=== PATIENT | female | born 1955 | race Caucasian/White ===

== ENCOUNTER 2020-03-11 14:05 | Emergency (ER) | payer OTHER ==
--- OUTSIDE RECORDS SUMMARY | 2020-03-11 14:07 | XMS REPORT | Continuity of Care Document ---
:1955 Author Organization [facility] t Address [address] [place] [address] Dr. Gaspar [address] [place] [id number] Care Team Providers Name Role Phone Ivory Attending Clinician Unavailable Problems This patient has no known problems. Allergies, Adverse Reactions, Alerts This patient has no known allergies or adverse reactions. Medications This patient has no known medications. Procedures This patient has no known procedures. Results Test Description Test Time Test Comments Results Result [facility] e Comments PAP TEST - THIN 2016-10-12 PREP SCREEN 10:03:00 -------- [place] [address] Laboratory Printed: 10/12/[address] [place] [address] DAEMPathology Page: 1 Patient: HENRY KING Birthdate: 1955 Age/Sex: 61/F Spec#: [id number]: Shantell Dodson DO Specimen Date: 10/07/16 Received Date: 10/08/16 Specimen: PAP - THIN PREP SCREEN GYNECOLOGIC CYTOLOGY DIAGNOSIS NEGATIVE FOR INTRAEPITHELIAL LESION OR MALIGNANCY Atrophic changes present Satisfactory for evaluation, Endocervical component present NOTE: The Pap test is a screening test with an inherent, but low probability of error.Your patient should be reminded to consult you immediately if she experiences any suspicioussigns or symptoms, regardless of her Pap test result.SCREENED BY: OSIEL LEY(ASCP) PERFORMING SITE: [facility], [place], [place] CAP# [id number] History:PAP Source: CERVIX/ENDOCERVIX LMP: NOS History of Hysterectomy?: NOrder HPV Test IF: ABNORMAL PROCEDURES: PAP SCREEN-THIN Signed (Electronicall y Signed) Delia Whitlock Cytot 10/12/16 -------- Patient: HENRY KING Re10/07/16Loc: [facility] MR#: [id number] END OF REPORT Dis: Sta: REG REF
[2020-03-11] MEDS ORDERED: MORPHINE 4 MG/ML SYR ONE (15:41)
[2020-03-11] MEDS ORDERED: ONDANSETRON 4 MG/2 ML VIAL ONE (15:41)
[2020-03-11] MEDS ORDERED: CLINDAMYCIN 600MG/D5W 600 MG/50 ML BAG IV ONE (15:42)
[2020-03-11 16:10] LABS: Absolute Lymphocytes (CBC) 1.8 K/uL (0.7-4.9); Basophils % 1.3 % (0-1.3); Hematocrit 37.4 % (36.0-45.0); Lymphocytes % 24.1 % (15.3-44.8); RBC Red Blood Cell Count 3.99 M/uL (3.86-4.86)
--- NOTE | 2020-03-11 16:19 | RAD REPORT ---
EXAM DESCRIPTION: [facility] CLINICAL HISTORY: dental pain;Facial pain Facial pain and swelling. COMPARISON: No comparisons TECHNIQUE: Axial 2 mm thick images of the face were obtained with sagittal and coronal reconstructio n images. All CT scans are performed using dose optimization technique as appropriate and may include automated exposure control or mA/KV adjustment according to patient size. FINDINGS: Small 2-3 mm periapical abscess is noted involving the right lateral incisor and first pre molar. The soft tissues is adjacent to the right maxilla are thickened. No discrete subperiosteal abs cess seen.General poor dentition is noted.The mandible is intact. Several mildly prominent lymph nodes are seen in both submandibular regions, likely reactive. The globes and orbital contents are grossly unremarkable.The paranasal sinuses and mastoids are clear . IMPRESSION: Small right maxillary periapical abscesses are present.No subperiosteal abscess. Several mildly prominent submandibular lymph nodes are present, slightly greater on the right, likely reactive in etiology.
[2020-03-11 16:20] LABS: Protime INR 0.94
[2020-03-11 16:49] LABS: Potassium 3.6 mmol/L (3.5-5.1)
--- NOTE | 2020-03-11 16:54 | ER ---
Nurse's Notes [facility] Name: Bharati Rodriguez Age: 64 yrs Sex: Female : 1955 Arrival Date: 03/11/2020 Time: 14:12 Bed 15 Private MD: Diagnosis: Periapical abscess without sinus Presentation: 03/11 14:17 Chief complaint: Patient states: Abscess on R upper tooth since the weekend. Tried to ca1 pull it out by twisting and pulling. Bruise and swelling on R eye, swelling on R face and a headache since Tuesday. Coronavirus screen: Client denies travel out of the [place] in the last 14 days. headache, Client presents with at least one sign or symptom that may indicate coronavirus-19. Standard/surgical mask placed on the client. Provider contacted for isolation considerations. The client denies any previous COVID testing. Ebola Screen: Patient negative for fever greater than or equal to 101.5 degrees Fahrenheit, and additional compatible Ebola Virus Disease symptoms Patient denies exposure to infectious person. Patient denies travel to an Ebola-affected area in the 21 days before illness onset. No symptoms or risks identified at this time. Initial Sepsis Screen: Does the patient meet any 2 criteria? No. Patient's initial sepsis screen is negative. Does the patient have a suspected source of infection? No. Patient's initial sepsis screen is negative. Risk Assessment: Do you want to hurt yourself or someone else? Patient reports no desire to harm self or others. Onset of symptoms was March 11, 2020. 14:17 Method Of Arrival: Ambulatory ca1 14:17 Acuity: HOLLY 4 ca1 Historical: - Allergies: 14:26 PENICILLINS; ca1 - Home Meds: 14:26 Advil 200 mg Oral tab 1 tab every 4 hours [Active]; prazosin 2 mg Oral cap 1 cap daily ca1 [Active]; propranolol 10 mg Oral tab 1 tab twice a day [Active]; quetiapine 100 mg oral tab 1 tab daily [Active]; levothyroxine 100 mcg tab 1 tab once daily [Active]; indomethacin 50 mg Oral cap [Active]; clonidine HCl 0.2 mg Oral tab 1 tab once daily [Active]; colchicine 0.6 mg Oral tab 2 tabs [Active]; buspirone 15 mg Oral tab 2 tabs 2 times per day [Active]; allopurinol 100 mg Oral tab 1 tab once daily [Active]; fluoxetine 20 mg Oral cap 2 caps once daily [Active]; cyclobenzaprine 5 mg Oral tab 1 tab twice a day [Active]; amlodipine 10 mg tab 1 tab once daily [Active]; - PMHx: 14:26 Gout; Hypertension; PTSD; ca1 - PSHx: 14:26 Back surgery; Appendectomy; Neck surgery; ca1 - Immunization history:: Adult Immunizations up to date, Flu vaccine is not up to date. It has been more than one year since last vaccine. - Social history:: Smoking status: Patient reports the use of cigarette tobacco products, smokes one pack cigarettes per day. Screenin:47 Abuse screen: Denies threats or abuse. Nutritional screening: No deficits noted. tw2 Tuberculosis screening: No symptoms or risk factors identified. Fall Risk None identified. Assessment: 14:26 General: Appears in no apparent distress. uncomfortable, obese, well groomed, Behavior tw2 is calm, cooperative, appropriate for age. Pain: Complains of pain in right cheek and right jaw. Neuro: Level of Consciousness is awake, alert, obeys commands, Oriented to person, place, time, situation. Cardiovascular: Patient's skin is warm and dry. Respiratory: Airway is patent Respiratory effort is even, unlabored, Respiratory pattern is regular, symmetrical. GI: No signs and/or symptoms were reported involving the gastrointestinal system. : No signs and/or symptoms were reported regarding the genitourinary system. EENT: bruising and swelling noted to Right eye and cheek area. Derm: No signs and/or symptoms reported regarding the dermatologic system. Musculoskeletal: Range of motion: intact in all extremities. 15:11 Reassessment: provider at bedside at this time. tw2 16:30 Reassessment: Patient appears in no apparent distress at this time. Patient and/or bp family updated on plan of care and expected duration. Pain level reassessed. Patient is alert, oriented x 3, equal unlabored respirations, skin warm/dry/pink. CT RESULTS PENDING. Vital Signs: 14:17 BP 158 / 80; Pulse 62; Resp 19 S; Temp 97.6(TE); Pulse Ox 99% on R/A; Weight 81.19 kg ca1 (R); Height 5 ft. 3 in. (160.02 cm) (R); Pain 5/10; 15:13 BP 154 / 83; Pulse 52; Resp 17; Pulse Ox 100% on R/A; tw2 16:42 BP 156 / 72; Pulse 53; Resp 16; Pulse Ox 97% ; bp 14:17 Body Mass Index 31.71 (81.19 kg, 160.02 cm) ca1 ED Course: 14:12 Patient arrived in ED. ds1 14:19 Triage completed. ca1 14:26 Arm band placed on right wrist. ca1 14:26 Bed in low position. Call light in reach. Pulse ox on. NIBP on. tw2 14:27 Jorge Moncada, RN is Primary Nurse. bp 14:57 Akash Gutierrez NP is PHCP. pm1 14:57 Juan Antonio Martinez MD is Attending Physician. pm1 15:31 Inserted saline lock: 20 gauge in right antecubital area, using aseptic technique. dh4 16:07 CT Facial Bones W/ Con \T\ Mpr In Process Unspecified. EDMS 17:16 No provider procedures requiring assistance completed. IV discontinued, intact, iw bleeding controlled, No redness/swelling at site. Pressure dressing applied. Administered Medications: 15:30 Drug: Clindamycin 600 mg Route: IVPB; Infused Over: 30 mins; Site: right forearm; bp 17:17 Follow up: IV Status: Completed infusion iw 15:30 Drug: morphine 4 mg Route: IVP; Site: right forearm; bp 15:43 Follow up: Response: No adverse reaction bp 15:33 Drug: Zofran (Ondansetron) 4 mg Route: IVP; Site: right forearm; bp 15:43 Follow up: Response: No adverse reaction bp Outcome: 16:53 Discharge ordered by MD. pm1 17:16 Discharged to home ambulatory, with family. iw 17:16 Condition: good 17:16 Discharge instructions given to patient, Instructed on discharge instructions, follow up and referral plans. medication usage, Demonstrated understanding of instructions, follow-up care, medications, Prescriptions given X 2. 17:18 Patient left the ED. iw Signatures: Dispatcher [employer] EDIL Luann Grace ds1 Ana Luisa Weber RN RN iw Akash Gutierrez, ENEDINA PRIEST pm1 Coretta Torres RN RN tw2 Jorge Moncada RN RN bp Acob, Domi, RN RN ca1 Huhn, Ellis dh4
--- NOTE | 2020-03-11 16:54 | EDPHYS ---
Physician Documentation [facility] Name: Bharati Rodriguez Age: 64 yrs Sex: Female : 1955 Arrival Date: 03/11/2020 Time: 14:12 Bed 15 Private MD: ED Physician Juan Antonio Martinez HPI: 03/11 15:19 This 64 yrs old Female presents to ER via Ambulatory with complaints of pm1 Facial Swelling, Abscess - Dental. 15:19 Onset: The symptoms/episode began/occurred today. pm1 15:19 The patient presents with Dental pain, swelling to right cheek. The problem is located pm1 in the upper right lateral incisor. Modifying factors: the symptoms are aggravated by attempting to extract tooth by herself at home. Associated signs and symptoms: Pertinent negatives: dysphagia, fever, inability to eat, nausea, vomiting. Severity of symptoms: in the emergency department the symptoms are actually worse. Patient with dental pain that started this weekend. Last night she attempted to extract the tooth by herself by twisting and pulling on the tooth. She woke up this AM with swelling and bruising to right cheek area and bruising. Historical: - Allergies: 14:26 PENICILLINS; ca1 - Home Meds: 14:26 Advil 200 mg Oral tab 1 tab every 4 hours [Active]; prazosin 2 mg Oral cap 1 cap daily ca1 [Active]; propranolol 10 mg Oral tab 1 tab twice a day [Active]; quetiapine 100 mg oral tab 1 tab daily [Active]; levothyroxine 100 mcg tab 1 tab once daily [Active]; indomethacin 50 mg Oral cap [Active]; clonidine HCl 0.2 mg Oral tab 1 tab once daily [Active]; colchicine 0.6 mg Oral tab 2 tabs [Active]; buspirone 15 mg Oral tab 2 tabs 2 times per day [Active]; allopurinol 100 mg Oral tab 1 tab once daily [Active]; fluoxetine 20 mg Oral cap 2 caps once daily [Active]; cyclobenzaprine 5 mg Oral tab 1 tab twice a day [Active]; amlodipine 10 mg tab 1 tab once daily [Active]; - PMHx: 14:26 Gout; Hypertension; PTSD; ca1 - PSHx: 14:26 Back surgery; Appendectomy; Neck surgery; ca1 - Immunization history:: Adult Immunizations up to date, Flu vaccine is not up to date. It has been more than one year since last vaccine. - Social history:: Smoking status: Patient reports the use of cigarette tobacco products, smokes one pack cigarettes per day. ROS: 15:19 Constitutional: Negative for fever, chills, and weight loss. pm1 15:19 Neck: Negative for injury, pain, and swelling, Cardiovascular: Negative for chest pain, palpitations, and edema, Respiratory: Negative for shortness of breath, cough, wheezing, and pleuritic chest pain, Abdomen/GI: Negative for abdominal pain, nausea, vomiting, diarrhea, and constipation, Back: Negative for injury and pain. 15:19 Neuro: Negative for headache, weakness, numbness, tingling, and seizure. 15:19 Eyes: Negative for pain, swelling. 15:19 ENT: Positive for dental pain, Negative for ear pain, sore throat. 15:19 Skin: Positive for swelling, bruising to right cheek area. Exam: 15:19 Constitutional: This is a well developed, well nourished patient who is awake, alert, pm1 and in no acute distress. Head/Face: Normocephalic, atraumatic. 15:19 Neck: Trachea midline, no thyromegaly or masses palpated, and no cervical lymphadenopathy. Supple, full range of motion without nuchal rigidity, or vertebral point tenderness. No Meningismus. 15:19 ENT: External ear(s): are unremarkable, Ear canal(s): are normal, TM's: are normal, Dental exam: dental caries, that is mild, diffusely, gum swelling, not appreciated, missing teeth, diffusely, pain, specifically in the upper right lateral incisor (#7). 15:19 Cardiovascular: Exam negative for acute changes, Rate: normal, Rhythm: regular, Pulses: no pulse deficits are appreciated. 15:19 Respiratory: Exam negative for acute changes, respiratory distress, shortness of breath. 15:19 Skin: Appearance: normal except for affected area, bruising to right lip extending to right eye area giving her the appearance of a black eye. Vital Signs: 14:17 BP 158 / 80; Pulse 62; Resp 19 S; Temp 97.6(TE); Pulse Ox 99% on R/A; Weight 81.19 kg ca1 (R); Height 5 ft. 3 in. (160.02 cm) (R); Pain 5/10; 15:13 BP 154 / 83; Pulse 52; Resp 17; Pulse Ox 100% on R/A; tw2 16:42 BP 156 / 72; Pulse 53; Resp 16; Pulse Ox 97% ; bp 14:17 Body Mass Index 31.71 (81.19 kg, 160.02 cm) ca1 MDM: 14:[address] [facility] 16:27 Data reviewed: vital signs. Data interpreted: Pulse oximetry: on room air is 100 %. pm1 Interpretation: normal. Counseling: I had a detailed discussion with the patient and/or guardian regarding: the historical points, exam findings, and any diagnostic results supporting the discharge/admit diagnosis, radiology results, the need for outpatient follow up, a dentist, to return to the emergency department if symptoms worsen or persist or if there are any questions or concerns that arise at home. 03/11 15:38 Order name: CBC with Diff; Complete Time: 16:21 pm1 03/11 15:38 Order name: BMP; Complete Time: 16:52 pm1 03/11 15:29 Order name: CT Facial Bones W/ Con \T\ Mpr; Complete Time: 16:25 pm1 03/11 15:38 Order name: PT-INR; Complete Time: 16:21 pm1 03/11 14:51 Order name: Ice pack; Complete Time: 14:51 tw2 03/11 15:38 Order name: IV Saline Lock; Complete Time: 15:43 pm1 Administered Medications: 15:30 Drug: Clindamycin 600 mg Route: IVPB; Infused Over: 30 mins; Site: right forearm; bp 17:17 Follow up: IV Status: Completed infusion iw 15:30 Drug: morphine 4 mg Route: IVP; Site: right forearm; bp 15:43 Follow up: Response: No adverse reaction bp 15:33 Drug: Zofran (Ondansetron) 4 mg Route: IVP; Site: right forearm; bp 15:43 Follow up: Response: No adverse reaction bp Disposition: 03/12 11:46 Co-signature as Attending Physician, Juan Antonio Martinez MD I agree with the assessment and [facility] plan of care. Chart complete. Disposition: 03/11/20 16:53 Discharged to Home. Impression: Periapical abscess without sinus. - Condition is Stable. - Discharge Instructions: Dental Abscess, Dental Pain, Diet and Dental Disease. - Prescriptions for Clindamycin HCl 300 mg Oral Capsule - take 1 capsule by ORAL route every 6 hours for 10 days; 40 capsule. Tylenol- Codeine #3 300-30 mg Oral Tablet - take 2 tablets by ORAL route every 6 hours As needed; 20 tablet. - Medication Reconciliation Form, Thank You Letter, Antibiotic Education, Prescription Opioid Use form. - Follow up: Emergency Department; When: As needed; Reason: Worsening of condition. Follow up: Private Physician; When: 2 - 3 days; Reason: Recheck today's complaints, Continuance of care, Re-evaluation by your physician. - Problem is new. - Symptoms have improved. Signatures: Dispatcher [employer] EDMS Juan Antonio Martinez MD MD cha Williams, Irene, RN RN iw Akash Gutierrez NP CLOSING SPECIALIST pm1 Coretta Torres RN RN tw2 Jorge Moncada RN RN bp Domi Seo RN RN ca1 Corrections: (The following items were deleted from the chart) 03/11 17:18 16:53 03/11/2020 16:53 Discharged to Home. Impression: Periapical abscess without iw sinus. Condition is Stable. Discharge Instructions: Dental Abscess, Dental Pain, Diet and Dental Disease. Prescriptions for Clindamycin HCl 300 mg Oral Capsule - take 1 capsule by ORAL route every 6 hours for 10 days; 40 capsule, Tylenol-Codeine #3 300-30 mg Oral Tablet - take 2 tablets by ORAL route every 6 hours As needed; 20 tablet. and Forms are Medication Reconciliation Form, Thank You Letter, Antibiotic Education, Prescription Opioid Use. Follow up: Emergency Department; When: As needed; Reason: Worsening of condition. Follow up: Private Physician; When: 2 - 3 days; Reason: Recheck today's complaints, Continuance of care, Re-evaluation by your physician. Problem is new. Symptoms have improved. pm1
[2020-03-11 17:26] VITALS: TEMP 97.6
[2020-03-11 17:30] VITALS: BP 156/72; O2SAT 97
== END 2020-03-11 17:18 | disposition home or self-care (01) ==
LOC: ER 14:05
DX: K04.7 Periapical abscess without sinus (principal); I10 Essential (primary) hypertension; F17.210 Nicotine dependence, cigarettes, uncomplicated; F43.10 Post-traumatic stress disorder, unspecified; Z88.0 Allergy status to penicillin
CPT/HCPCS: 96365; 85025; 80048; 36415; 85610; 82565; 70487; 76377; 96375; 99284; 96366; Q9967; J2405

== ENCOUNTER 2020-10-15 20:51 | Emergency (ER) | payer OTHER ==
--- OUTSIDE RECORDS SUMMARY | 2020-10-15 20:53 | XMS REPORT | Continuity of Care Document ---
:1955 Author Organization [facility] t Address [address] [place] [address] Dr. Gaspar [address] [place] [id number] Care Team Providers Name Role Phone Ivory Attending Clinician Unavailable Problems This patient has no known problems. Allergies, Adverse Reactions, Alerts This patient has no known allergies or adverse reactions. Medications This patient has no known medications. Procedures This patient has no known procedures. Results Test Description Test Time Test Comments Results Result [facility] e Comments PAP TEST - THIN 2016-10-12 PREP SCREEN 10:03:00 -------- [facility] [place] [address] Laboratory Printed: 10/12/[address] [place] [address] DAEMPathology Page: 1 Patient: HENRY KING Birthdate: 1955 Age/Sex: 61/F Spec#: [id number]: Shantell Dodson DO Specimen Date: [...] test result.SCREENED BY: OSIEL LEY(ASCP) PERFORMING SITE: [facility], [place], [place] CAP# [id number] History:PAP Source: CERVIX/ENDOCERVIX LMP: NOS History of Hysterectomy?: NOrder HPV Test IF: ABNORMAL PROCEDURES: PAP SCREEN-THIN Signed (Electronicall y Signed) Delia Whitlock Cytot 10/12/16 -------- Patient: CHRISTINEHENRY Re10/07/16Loc: [facility] MR#: [id number] END OF REPORT Dis: Sta: REG REF
[2020-10-15] MEDS ORDERED: HYDROCODONE/APAP 10/325 TAB ONE (23:03)
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
[2020-10-16 01:06] VITALS: BP 153/69; TEMP 98.2; O2SAT 98
--- NOTE | 2020-10-16 07:59 | RAD REPORT ---
EXAM DESCRIPTION: RAD - Knee Left 3 View - 10/15/2020 11:07 pm CLINICAL HISTORY: Left knee pain status post injury FINDINGS: No fracture or dislocation is seen. If patient continues to have symptoms to suggest an occult fracture, ligamentous or meniscal injury M RI would recommended
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
--- NOTE | 2020-10-16 10:38 | RAD REPORT ---
EXAM DESCRIPTION: CT - Facial Bones W/ Mpr - 10/16/2020 6:52 am CLINICAL HISTORY: PAIN. TECHNIQUE: Axial, coronal, and sagittal images through the brain and maxillofacial region were perfo rmed in the absence of intravenous contrast. CT of the cervical spine was performed without contrast. Axial, coronal, and sagittal reconstructions were created and sent to PACS. These exams were performed according to our departmental dose-optimization program which includes use of Automated Exposure Control, adjustment of the mA and/or kV according to patient size and/or use o f iterative reconstruction technique. COMPARISON: None. FINDINGS: CT Head: There is diffuse age-appropriate atrophy seen throughout the brain parenchyma. Mild periventricular w breezy matter changes are seen to be present and there is mild ex vacuo dilatation of the ventricular s ystem. There is no intra-axial or extra-axial bleed. There is no mass or mass effect. CT maxillofacial: The visualized paranasal sinuses and mastoid air cells are patent. No acute fracture is identified. N o lymphadenopathy or fluid collections identified. CT cervical spine: No acute osseous abnormality identified. Vertebral body heights are maintained. Grade 1 anterolisthes is at C3-4. Anterior fusion hardware and disc spacers from C5 through C7. No atlantodental interval w idening. Atlantoaxial alignment is maintained. C2-C3: Small posterior disc osteophyte complex. No significant central canal or neuroforaminal narrow ing. C3-C4: Small posterior disc osteophyte complex results in borderline thecal sac narrowing to 0.8 to 0 .9 cm AP. Mild left neuroforaminal narrowing due to uncinate hypertrophy. No significant right neurof oraminal narrowing. C4-C5: Posterior disc osteophyte complex results in mild central canal narrowing to 0.7 cm AP. Mild l eft neuroforaminal narrowing due to uncinate hypertrophy. No significant central canal or right neuro foraminal narrowing. C5-C6: Postsurgical level. Borderline thecal sac narrowing to 0.8 to 0.9 cm AP. Moderate left and mil d right neuroforaminal narrowing due to uncinate hypertrophy. C6-C7: Postsurgical level. Borderline thecal sac narrowing to 0.8 to 0.9 cm AP. Moderate left and mil d right neuroforaminal narrowing due to uncinate hypertrophy. Paraspinal soft tissues: Moderate calcific atherosclerosis, most prominent in the bilateral carotid b ulbs and proximal ICAs. IMPRESSION: 1. No acute intracranial abnormality identified. 2. No acute facial fracture. Clear paranasal sinuses. 3. No acute osseous abnormality identified in the cervical spine. Postsurgical and degenerative jimmie nges, as described. 4. Moderate atherosclerosis. Electronically signed by: Vernell Llanos MD 10/15/2020 11:02 PM CDT Due to temporary technical issues with the PACS/Fluency reporting system, reports are being signed by the in house radiologist without review as a courtesy to ensure prompt reporting. The interpreting r adiologist is fully responsible for the content of the report.
--- NOTE | 2020-10-16 10:44 | RAD REPORT ---
EXAM DESCRIPTION: CT - Pelvis Wo Cont - 10/16/2020 6:51 am CLINICAL HISTORY: PAIN. COMPARISON: None. TECHNIQUE: CT of the pelvis was performed without IV contrast. Axial, coronal, and sagittal reconstr uctions were created and sent to PACS. This exam was performed according to our departmental dose-optimization program, which includes autom ated exposure control, adjustment of the mA and/or kV according to patient size and/or use of iterati ve reconstruction technique. FINDINGS: Bones: No acute osseous abnormality is identified. Osteopenia. Moderate to severe left hip osteoarthrosis, with complete posterior joint space loss, and moderate subchondral cystic change in the acetabulum and femoral head. Multiple small suspected intra-articular bodies, measuring up to 0.6 cm. Moderate right hip osteoarthrosis, with mild subchondral cystic change in the superior acetabulu m. 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 Mild bilateral sacroiliac osteo arthrosis. Sacrococcygeal alignment is maintained. Lower lumbar spine degenerative changes and fusion hardware, further evaluated in the separate report for the concurrently performed CT of the lumbar s pine. Soft tissues: No definite hip joint effusions identified. Distended urinary bladder. Moderate calcifi c atherosclerosis. IMPRESSION: 1. No acute osseous abnormality identified. Osteopenia. 2. Moderate to severe left hip osteoarthrosis with multiple small suspected intra-articular bodies. 3. Moderate right hip osteoarthrosis. 4. 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 5. Distended urinary bladder. Correlate for urinary retention. Electronically signed by: Vernell Llanos MD 10/15/2020 11:14 PM CDT Due to temporary technical issues with the PACS/Fluency reporting system, reports are being signed by the in house radiologist without review as a courtesy to ensure prompt reporting. The interpreting r adiologist is fully responsible for the content of the report.
--- NOTE | 2020-10-16 10:46 | RAD REPORT ---
EXAM DESCRIPTION: CT - Head C Spine Mpr Wo Con - 10/16/2020 6:51 am CLINICAL HISTORY: PAIN. TECHNIQUE: Axial, coronal, and sagittal images through the brain and maxillofacial region were perfo rmed in the absence of intravenous contrast. CT of the cervical spine was performed without contrast. Axial, coronal, and sagittal reconstructions were created and sent to PACS. These exams were performed according to our departmental dose-optimization program which includes use of Automated Exposure Control, adjustment of the mA and/or kV according to patient size and/or use o f iterative reconstruction technique. COMPARISON: None. FINDINGS: CT Head: There is diffuse age-appropriate atrophy seen throughout the brain parenchyma. Mild periventricular w breezy matter changes are seen to be present and there is mild ex vacuo dilatation of the ventricular s ystem. There is no intra-axial or extra-axial bleed. There is no mass or mass effect. CT maxillofacial: The visualized paranasal sinuses and mastoid air cells are patent. No acute fracture is identified. N o lymphadenopathy or fluid collections identified. CT cervical spine: No acute osseous abnormality identified. Vertebral body heights are maintained. Grade 1 anterolisthes is at C3-4. Anterior fusion hardware and disc spacers from C5 through C7. No atlantodental interval w idening. Atlantoaxial alignment is maintained. C2-C3: Small posterior disc osteophyte complex. No significant central canal or neuroforaminal narrow ing. C3-C4: Small posterior disc osteophyte complex results in borderline thecal sac narrowing to 0.8 to 0 .9 cm AP. Mild left neuroforaminal narrowing due to uncinate hypertrophy. No significant right neurof oraminal narrowing. C4-C5: Posterior disc osteophyte complex results in mild central canal narrowing to 0.7 cm AP. Mild l eft neuroforaminal narrowing due to uncinate hypertrophy. No significant central canal or right neuro foraminal narrowing. C5-C6: Postsurgical level. Borderline thecal sac narrowing to 0.8 to 0.9 cm AP. Moderate left and mil d right neuroforaminal narrowing due to uncinate hypertrophy. C6-C7: Postsurgical level. Borderline thecal sac narrowing to 0.8 to 0.9 cm AP. Moderate left and mil d right neuroforaminal narrowing due to uncinate hypertrophy. Paraspinal soft tissues: Moderate calcific atherosclerosis, most prominent in the bilateral carotid b ulbs and proximal ICAs. IMPRESSION: 1. No acute intracranial abnormality identified. 2. No acute facial fracture. Clear paranasal sinuses. 3. No acute osseous abnormality identified in the cervical spine. Postsurgical and degenerative jimmie nges, as described. 4. Moderate atherosclerosis. Electronically signed by: Vernell Llanos MD 10/15/2020 11:02 PM CDT Due to temporary technical issues with the PACS/Fluency reporting system, reports are being signed by the in house radiologist without review as a courtesy to ensure prompt reporting. The interpreting r adiologist is fully responsible for the content of the report.
--- NOTE | 2020-10-16 10:47 | RAD REPORT ---
EXAM DESCRIPTION: CTSpine Lumbar Wo Con10/16/2020 6:50 am CLINICAL HISTORY: PAIN. COMPARISON: None. TECHNIQUE: CT of the lumbar spine was performed without IV contrast. Axial, coronal, and sagittal re constructions were created and sent to PACS. This exam was performed according to our departmental dose-optimization program, which includes autom ated exposure control, adjustment of the mA and/or kV according to patient size and/or use of iterati ve reconstruction technique. FINDINGS: Bones: No acute osseous abnormality identified. Osteopenia. Grade 3 anterolisthesis at L5- S1 with partial osseous fusion of the vertebral bodies, and posterior fusion hardware. Mild bilateral sacroiliac osteoarthrosis. T12-L1: No significant central canal or neuroforaminal stenosis identified. L1-L2: No significant central canal or neuroforaminal stenosis identified. L2-L3: No significant central canal or neuroforaminal stenosis identified. L3-L4: Minimal circumferential disc bulge. No significant central canal or neuroforaminal stenosis id entified. L4-L5: Minimal circumferential disc bulge. No significant central canal or obvious neuroforaminal ramon nosis identified, within the limitation of metal artifact. L5-S1: Postsurgical level, with evaluation of the central canal and neural foramina obscured by metal artifact. Paraspinal soft tissues: Moderate calcific atherosclerosis. Partially imaged distended urinary bladde r. IMPRESSION: 1. No acute osseous abnormality of the lumbar spine. Osteopenia. 2. 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 3. Minimal degenerative disc disease. No significant central canal or neuroforaminal stenosis ident ified. Electronically signed by: Vernell Llanos MD 10/15/2020 11:17 PM CDT Due to temporary technical issues with the PACS/Fluency reporting system, reports are being signed by the in house radiologist without review as a courtesy to ensure prompt reporting. The interpreting r adiologist is fully responsible for the content of the report.
== END 2020-10-16 00:24 | disposition home or self-care (01) ==
LOC: ER 20:51
DX: S00.93XA Contusion of unspecified part of head, initial encounter (principal); M20.031 Swan-neck deformity of right finger(s); M54.5 Low back pain; M25.552 Pain in left hip; M25.562 Pain in left knee; Z04.71 Encounter for examination and observation following alleged adult physical abuse; I10 Essential (primary) hypertension; F17.210 Nicotine dependence, cigarettes, uncomplicated; Z88.0 Allergy status to penicillin
CPT/HCPCS: 70450; 70486; 72125; 72131; 72192; 76377; 99284